=== PATIENT | male | born 1970 | race Caucasian/White ===

== ENCOUNTER 2016-11-20 08:29 | Emergency (ER) | payer OTHER | END 2016-11-20 09:26 | disposition home or self-care (01) | LOC: ER1 08:29 | DX: H60.92 Unspecified otitis externa, left ear (principal); F17.200 Nicotine dependence, unspecified, uncomplicated; Z88.0 Allergy status to penicillin | CPT/HCPCS: 99282 ==

== ENCOUNTER 2016-11-27 15:58 | Emergency (ER) | payer OTHER | END 2016-11-27 19:05 | disposition home or self-care (01) | LOC: ER1 15:58 | DX: S09.90XA Unspecified injury of head, initial encounter (principal); S19.9XXA Unspecified injury of neck, initial encounter; S49.91XA Unspecified injury of right shoulder and upper arm, initial encounter; S79.912A Unspecified injury of left hip, initial encounter; V09.9XXA Pedestrian injured in unspecified transport accident, initial encounter; I10 Essential (primary) hypertension; Y92.410 Unspecified street and highway as the place of occurrence of the external cause | CPT/HCPCS: 70450; 71250; 72125; 93005; 96372; 99284; J1885 ==

== ENCOUNTER 2021-03-12 21:31 | Emergency (ER) | payer OTHER ==
[~2021-03-12 21:31] MED LIST: AMLODIPINE BESYL5 MG PO; ASPIRIN81 MG PO; ATORVASTATIN CA20 MG PO; BRINTELLIX10 MG PO; CYANOCOBAL1000 MCG/1 INJ; FLAGYL500 MG PO; IMDUR ER TAB 3030 MG PO; LEVAQUIN500 MG PO; METOPROLOL SUCC50 MG PO; MOBIC15 MG PO; NEURONTIN600 MG PO; PERCOCET 5/325 T1 EA PO; VITAMIN D10000 UNIT PO; ZESTRIL 40 MG T40 MG PO
[2021-03-12] MEDS ORDERED: CLINDAMYCIN HC300 MG PO (22:36)
== END 2021-03-12 22:55 | disposition home or self-care (01) ==
LOC: ER1 21:31
DX: K08.89 Other specified disorders of teeth and supporting structures (principal); I10 Essential (primary) hypertension; F17.200 Nicotine dependence, unspecified, uncomplicated; Z88.0 Allergy status to penicillin; Z79.899 Other long term (current) drug therapy
CPT/HCPCS: 99282

== ENCOUNTER 2021-03-23 09:46 | Observation (INO) | payer OTHER ==
[~2021-03-23] VITALS: Ht 162.6 cm; Wt 120.7 kg
[~2021-03-23 09:46] MED LIST changes: +CLINDAMYCIN HC300 MG PO
[2021-03-23 10:40] LABS: HEMOGLOBIN 14.8 gm/dl (14.0-17.5); RED BLOOD COUNT 5.24 M/UL (4.20-5.50); WHITE BLOOD COUNT 20.6 K/UL (4.5-11.0)
[2021-03-24 01:18] LABS: HEMOGLOBIN 14.4 gm/dl (14.0-17.5); RED BLOOD COUNT 4.73 M/UL (4.20-5.50)
[2021-03-24 01:29] LABS: WHITE BLOOD COUNT 14.5 K/UL (4.5-11.0)
[2021-03-24] MEDS ORDERED: LASIX20 MG PO (08:52)
[2021-03-24] MEDS ORDERED: ZESTRIL 40 MG T40 MG PO (08:53)
[2021-03-24] MEDS ORDERED: ASPIRIN81 MG PO (08:53)
[2021-03-24] MEDS ORDERED: ISOSORBIDE MONO30 MG PO (08:53)
[2021-03-24] MEDS ORDERED: AMLODIPINE BESYL5 MG PO (08:53)
[2021-03-24] MEDS ORDERED: AZITHROMYCIN250 MG PO (09:32)
== END 2021-03-24 14:03 | disposition home or self-care (01) ==
LOC: ER1 09:46 → M/S 17:15
PROVIDERS: Emergency Medicine; Physician Assistant Medical; ADMIT Internal Medicine
DX: J96.01 Acute respiratory failure with hypoxia (principal); I11.0 Hypertensive heart disease with heart failure; I50.33 Acute on chronic diastolic (congestive) heart failure; R00.1 Bradycardia, unspecified; I25.10 Atherosclerotic heart disease of native coronary artery without angina pectoris; I25.2 Old myocardial infarction; F17.210 Nicotine dependence, cigarettes, uncomplicated; K04.7 Periapical abscess without sinus; E66.01 Morbid (severe) obesity due to excess calories; H66.90 Otitis media, unspecified, unspecified ear; R79.89 Other specified abnormal findings of blood chemistry; Z91.14 Patient's other noncompliance with medication regimen; Z68.42 Body mass index [BMI] 45.0-49.9, adult; Z88.0 Allergy status to penicillin; Z79.82 Long term (current) use of aspirin; Z79.899 Other long term (current) drug therapy; Z20.822 Contact with and (suspected) exposure to COVID-19
CPT/HCPCS: 0240U; 36415; 36600; 71045; 80048; 80053; 81001; 82550; 82553; 82803; 83605; 83690; 83735; 83880; 84484; 85025; 85027; 87040; 93005; 94660; 94760; 96374; 99285; G0378; J0360; J1940

== ENCOUNTER → 2021-10-13 | Outpatient (CLI) | payer OTHER ==
[~2021-10-13] MED LIST changes: +AZITHROMYCIN250 MG PO; +ISOSORBIDE MONO30 MG PO; +LASIX20 MG PO
== END ==
LOC: ECHO 12:03
DX: I50.40 Unspecified combined systolic (congestive) and diastolic (congestive) heart failure (principal); I51.7 Cardiomegaly
CPT/HCPCS: ECHO; 93005; 93306